=== PATIENT | female | born 1950 | race Caucasian/White ===

== ENCOUNTER 2018-04-18 06:40 | Day surgery (SDC) | payer BC ==
[~2018-04-18] VITALS: Ht 157.5 cm; Wt 77.1 kg
[~2018-04-18 06:40] MED LIST: COLACE100 MG PO; FENOFIBRATE160 MG PO; FISH OIL 1,0001 EAC3 PO; GLUCOSAMINE &1 EAC1 PO; METFORMIN HCL500 MG PO; NORCO 5-325 TA1 EACH PO; NORCO 7.5-3251 EACH PO; SIMVASTATIN40 MG PO; VITAMIN D5000 UNI1 PO
--- NOTE | 2018-04-18 09:53 | NUR ---
04/18/18 0953 Yudy Quigley 6709-PATIENT ARRIVED TO PACU ON 10L MASK WEANED TO 6L O2 SAT 100% RR EVEN. PATIENT REACTIVE TO VOICE EYES CLOSED. SR. RIGHT ARM ELEVATED ON PILLOW GOOD CAP REFILL AND WARMTH JUAN RADIAL PULSE. ICE APPLIED.
--- NOTE | 2018-04-18 10:59 | NUR ---
PATIENT RETURNED TO ROOM 11 AT 1045. PATIENT RETURNED WITH 2L VIA NC TO MAINTAIN SATS 97%. PATIENT IMMEDIATELY UP TO VOID AT COMMODE WITH 2 ASSIST. PATIENT IS DIZZY. 1100 PATIENT TITRATED TO ROOM AIR AND IS 94 TO 95%. RIGHT WRIST HAS ABEBE WRAP INTACT, CMS INTACT, ELEVATED ON ONE PILLOW WITH ICE. IV IS SALINE LOCKED. PATIENT GIVEN ICE WATER FOR SIPS.
--- NOTE | 2018-04-18 12:08 | NUR ---
PATIENT RESTING IN BED HAVING PUDDING, CRACKERS AND WATER. RIGHT ARM ELEVATED ON PILLOW WITH ICE. PATIENT RATES RIGHT WRIST PAIN 7/10 AND IS WILLING TO HAVE ULTRAM FOR PAIN.
[2018-04-18] MEDS ORDERED: ULTRAM50 MG PO (12:34)
--- NOTE | 2018-04-20 07:20 | OR ---
[facility] [place] [facility] [address] [place] [place], [place] [address] Signed DATE OF OPERATION: 04/18/2018 SURGEON: Girma Santillan MD PREOPERATIVE DIAGNOSIS: Symptomatic retained orthopedic hardware, right wrist. POSTOPERATIVE DIAGNOSIS: Symptomatic retained orthopedic hardware, right wrist. PROCEDURE: Removal of plate and screws (seven screws). ANESTHESIA: General. SPECIMENS AND COMPLICATIONS: There were no specimens or complications. TOURNIQUET TIME: Was about half an hour. WHAT WAS DONE: The patient was taken to the operating room. After anesthesia was induced and airway secured, the patient was positioned, prepped and draped in a routine sterile fashion. The arm was exsanguinated with Esmarch bandage. Pneumatic tourniquet was inflated to 250 mmHg pressure. We then made a volar incision using her old scar as a guide. Skin was divided sharply. Subcutaneous tissue was bluntly spread. The FCR tendon sheath was identified, opened and the contents were swept in an ulnar direction. The plate was then identified underneath that surrounded by a moderate amount of scar tissue. This was gently dissected of the plate and screws using a 15 blade and a dental pick tool. We then backed out all the screws, removed all of the pins and were able to elevate the plate and removed it without difficulty. The wound was gently irrigated. The screw holes were gently curetted. The wounds were then irrigated one more time, closed in standard fashion and sterile dressing applied. The patient was awakened and taken to the recovery room where she arrived in stable condition. Counts were correct and antibiotic protocols were followed. Electronically Signed By: GIRMA SANTILLAN MD 04/20/18 0720 PATIENT NAME: BRIGITTE MOORE OPERATIVE REPORT DATE OF : 52 REPORT #: [id number] PHYSICIAN: GIRMA SANTILLAN MD PCP: TIFFANIE TABOR MD REPORT IS CONFIDENTIAL AND NOT TO BE RELEASED WITHOUT AUTHORIZATION [address] [address] Signed Girma Santillan MD WFB/MODL /[id number] Copies: ~ Electronically Signed By: GIRMA SANTILLAN MD 04/20/18 0720 PATIENT NAME: BRIGITTE MOORE OPERATIVE REPORT DATE OF : 52 REPORT #: [id number] PHYSICIAN: GIRMA SANTILLAN MD PCP: TIFFANIE TABOR MD REPORT IS CONFIDENTIAL AND NOT TO BE RELEASED WITHOUT AUTHORIZATION
== END 2018-04-18 13:08 | disposition home or self-care (01) ==
LOC: DS 06:40
PROVIDERS: Orthopaedic Surgery
PROC: 0RPN04Z Removal of Internal Fixation Device from Right Wrist Joint, Open Approach (ICD-10-PCS; principal; 2018-04-18 08:15)
DX: T84.84XA Pain due to internal orthopedic prosthetic devices, implants and grafts, initial encounter (principal); E11.9 Type 2 diabetes mellitus without complications; E78.00 Pure hypercholesterolemia, unspecified; Z88.1 Allergy status to other antibiotic agents; Z79.899 Other long term (current) drug therapy; Z79.84 Long term (current) use of oral hypoglycemic drugs; Z87.891 Personal history of nicotine dependence
CPT/HCPCS: J1100; J1885; J2250; J2405; J2704; J3010; J3490; J7120

== ENCOUNTER 2020-04-01 06:55 | Day surgery (SDC) | payer BC, MEDICARE ==
[~2020-04-01] VITALS: Ht 157.5 cm; Wt 77.1 kg
[~2020-04-01 06:55] MED LIST changes: +LIPITOR80 MG PO; +MACULAR VITAMI1 EACH PO; +ULTRAM50 MG PO
[2020-04-01] MEDS ORDERED: OXYCODON-ACETA1 EAC2 PO (12:39)
[2020-04-01] MEDS ORDERED: IBUPROFEN600 MG PO (12:39)
[2020-04-01] MEDS ORDERED: TYLENOL EXTRA500 MG PO ×2 (12:45→12:56)
--- NOTE | 2020-04-03 08:21 | OR ---
[facility] [address] [place], [place] [address] Signed DATE OF OPERATION: 04/01/2020 SURGEON: Misha Almanza MD PREOPERATIVE DIAGNOSIS: Left upper inner infiltrating ductal breast carcinoma. POSTOPERATIVE DIAGNOSES: 1. Left upper inner infiltrating ductal breast carcinoma. 2. Negative sentinel lymph nodes by initial frozen pathology examination. PROCEDURES: 1. Left breast sentinel lymph node injection of methylene blue dye. 2. Left deep axillary sentinel lymph node biopsies (5 total). 3. Left needle localized partial mastectomy upper inner aspect of breast with oncoplastic closure including breast pedicle mobilization and approximation. ANESTHESIA: General endotracheal; Ori Holloway CRNA. INDICATION: This 69-year-old white woman is a patient of Dr. Tiffanie Talley. She was found on a screening mammogram to have an abnormality in the upper aspect of the left breast. Evaluation by Dr. Alarcon included biopsy, confirming infiltrating ductal breast carcinoma. She has had no prior breast intervention of any sort and has no family history of breast cancer, though a cousin on her maternal sign may have had breast cancer she thinks. She is postmenopausal. She had bruising and so forth related to her biopsy and therefore, it is unclear if there was a palpable mass at the time I evaluated her. She has no clinical evidence of metastatic disease. She is COVID negative. She is admitted at this time to undergo a needle localized excision of the tumor with partial mastectomy as well as sentinel lymph node biopsy on the left side, possible axillary dissection. The risks of bleeding, infection, cosmetic deformity, and a plan for radiation therapy postoperatively, has all been reviewed with her in detail. She understands and wished to proceed. FINDINGS: Good uptake of methylene blue dye and radionuclide to the left axillary sentinel lymph nodes was noted. Frozen pathology on at least 4 of the 5 lymph nodes excised, showed no evidence of metastatic disease. Several of the lymph nodes were fatty replaced, but were "hot" on radionuclide uptake. They were additionally hot on the "Spywear" Electronically Signed By: MISHA ALMANZA MD 04/03/20 0821 PATIENT NAME: BRIGITTE MOORE OPERATIVE REPORT DATE OF : 52 REPORT #: [id number] PHYSICIAN: MISHA ALMANZA MD PCP: TIFFANIE TALLEY MD REPORT IS CONFIDENTIAL AND NOT TO BE RELEASED WITHOUT AUTHORIZATION [facility] [address], [place] [address] Signed technology. As regard to the excised neoplasm, it was very firm and well-defined, but larger than I had anticipated. There was no sign of residual hematoma. Wide excision was undertaken with a clinically negative margin and additional margin taken inferiorly. The sizable defect remaining in the superior inner aspect of the breast was more optimally closed from a cosmetic standpoint by mobilizing the superior and inferior breast pedicle advancing and reapproximating in an oncoplastic closure technique. At conclusion, the cosmesis was good. DESCRIPTION OF PROCEDURE: The patient was brought to the operating room, given a general LMA type anesthetic. She had been received from Radiology suite. A wire was emanating from the medial aspect in the superior portion of the left breast. Interrogation of the left axilla with the C-Trak probe device showed intense uptake in the mid left axilla. A 1.5 mL of methylene blue dye was injected in the subepidermal space at the 10 o'clock position of the left areola. In addition, 0.1 mL of contrast was injected at 12 o'clock and another in the 3 o'clock position. The breast was prepared with a spray Betadine solution and draped sterilely. A sterile C-Trak probe was applied to the left axilla, identifying the area of maximal uptake. The SpyGlass hand probe was used, which identified well the injection sites and lymphatic streak to the left axilla as well. It did not otherwise, localize the abnormality. The transversus abdominis made, however, the area of maximal uptake corresponding to the radionuclide dissection, carried through the dermis sharply using blunt electrocautery dissection. The mid to upper axillary contents were interrogated. With various manipulations and with use of the C-Trak probe and episodic use of the SpyGlass technology, the intense blue node was identified. This was dissected free from surrounding soft tissue, excised, measured about 1.5 cm in size. It was not hard, but was firm. It is confirmed to have high uptake with radionuclide as well as the SpyGlass device. It was sent as sentinel lymph node #1. Additional dissection of the axilla was undertaken, ultimately retrieving 5 nodes, 2 of them quite small, none of them suspicious. It was subsequently noted by Dr. Nesbitt to be negative on frozen pathology, though one of the smallest nodes has not yet been examined microscopically. The axillary wound was packed with gauze after application of several clips to those areas as small amount of bleeding. Attention was turned towards the left breast excision. Wire emanated from the medial superior aspect on the left side. Using the natural skin tension as a guide, an incision was made directly over where the lesion was likely to be located. Dissection was carried through the dermis with electrocautery. With some electrocautery dissection, the wire was encountered and relocated into the incision and the parenchyma associated with a grasped with an Allis clamp. Electrocautery was used to dissect circumferentially as the wire as a guideline. Firmness of the lesion could be palpated and a wide margin was maintained. It appeared to be in the upper inner aspect of the left breast. Dissection was carried down essentially the pectoralis fascia to provide and clinically negative margin. Once Electronically Signed By: MISHA ALMANZA MD 04/03/20 0821 PATIENT NAME: BRIGITTE MOORE OPERATIVE REPORT DATE OF : 52 REPORT #: [id number] PHYSICIAN: MISHA ALMANZA MD PCP: TIFFANIE TALLEY MD REPORT IS CONFIDENTIAL AND NOT TO BE RELEASED WITHOUT AUTHORIZATION [facility] [address], [place] [address] Signed excised, the specimen was marked with a short stitch superior and long stitch lateral, and a double stitch in the deep margin. Palpation within the biopsy cavity did not reveal any strong suspicion of residual tissue. However, the inferior margin was excised fully and widely as it was the most dense of the remaining breast parenchyma. The specimen was sent for permanent pathology as well. This defect was relatively sizable and primary reapproximation of the skin easily possible, but parenchyma leaving a defect. On this basis, an oncoplastic closure was deemed advisable. The fascia of the breast superiorly was grasped with two Allis clamps and the breast elevated from the underlying pectoralis muscle, mobilizing it inferiorly. Similar technique was used for the inferior breast pedicle. This allowed reapproximation of the fascial rather the deep fascial margin and breast parenchyma with interrupted 2-0 Vicryl. The parenchyma itself was reapproximated with less tension due to mobilization, also with 2-0 Vicryl and deep dermal tissue similarly reapproximated. Release of tension on the skin inferiorly was undertaken with electrocautery and the skin more mobilized for beneficial cosmetic affect. The skin was then closed in a running subcuticular 3-0 Vicryl. Steri-Strips were applied. By this point, the frozen pathology had returned confirming no sign of metastatic disease to the axilla. The left axillary wound was inspected showing no sign of ongoing bleeding or other problems. It was closed with interrupted 2-0 Vicryl and a running subcuticular 3-0 Vicryl for the skin. Steri-Strips were applied as were silver sponge dressings. The patient was ultimately extubated and transferred to recovery room in good condition, having suffered no complications. Sponge, needle, and instruments counts were reported as correct x3. Blood loss was less than 25 mL. Misha Almanza MD /MODL /[id number] cc: Tiffanie Talley MD Copies: TIFFANIE TALLEY MD Electronically Signed By: MISHA ALMANZA MD 04/03/20 0821 PATIENT NAME: BRIGITTE MOORE OPERATIVE REPORT DATE OF : 52 REPORT #: [id number] PHYSICIAN: MISHA ALMANZA MD PCP: TIFFANIE TALLEY MD REPORT IS CONFIDENTIAL AND NOT TO BE RELEASED WITHOUT AUTHORIZATION [address] [address] Signed ~ Electronically Signed By: MISHA ALMANZA MD 04/03/20 0821 PATIENT NAME: MOOREBRIGITTE OPERATIVE REPORT DATE OF : 52 REPORT #: [id number] PHYSICIAN: MISHA ALMANZA MD PCP: TIFFANIE TALLEY MD REPORT IS CONFIDENTIAL AND NOT TO BE RELEASED WITHOUT AUTHORIZATION
--- NOTE | 2020-04-04 18:24 | PATH ---
[facility] [address] [facility] [place], [place] [address] Signed SPECIMEN(S): A SENTINEL LYMPH NODE #1 SPECIMEN(S): B SENTINEL LYMPH NODE #2 SPECIMEN(S): C SENTINEL LYMPH NODE #3 SPECIMEN(S): D SENTINEL LYMPH NODE #4 SPECIMEN(S): E SENTINEL LYMPH NODE #5 SPECIMEN(S): F LEFT BREAST SPECIMEN(S): G ADDITIONAL INFERIOR MARGIN SPECIMEN SOURCE: A. SENTINEL LYMPH NODE #1 B. SENTINEL LYMPH NODE #2 C. SENTINEL LYMPH NODE #3 D. SENTINEL LYMPH NODE #4 E. SENTINEL LYMPH NODE #5 F. LEFT BREAST G. ADDITIONAL INFERIOR MARGIN CLINICAL HISTORY: Left breast biopsy with US. Lumpectomy (short stitch superior, long stitch lateral, double stitch deep). Infiltrating ductal cancer, left breast. FROZEN SECTION DIAGNOSIS: A. [place] lymph node #1: No evidence of malignancy in group sales representative section frozen. (Dr. Awan, 04/01/20, 11:32 AM) B. [place] lymph node #2:No evidence of malignancy and group sales representative section frozen. (Dr. Awan, 04/01/20, 11:32 AM) C. [place] lymph node #3:No evidence of malignancy and group sales representative section frozen. (Dr. Awan, 04/01/20, 11:50 AM) INTRAOPERATIVE CONSULTATION DIAGNOSIS: D. [place] lymph node #4: No gross evidence of metastasis (gross exam only). (Dr. Awan, 04/01/20, 11:50 AM) E. [place] lymph node #5: No gross evidence of metastasis (gross exam only). (Dr. Awan, 04/01/20, 11:50 AM) AC (under the direct supervision of a pathologist) The Gross Description was prepared using a voice recognition system. The report was reviewed for accuracy; however, sound-alike word errors, addition and/or deletions may occur. If there is any question about this report, please contact Client Services. FINAL PATHOLOGIC DIAGNOSIS: A. [place] lymph node #1, left axilla, excisional biopsy: PATIENT NAME: BRIGITTE MOORE PATHOLOGY DATE OF : 52 REPORT #: [id number] PHYSICIAN: FIDEL HALL PCP: TIFFANIE TABOR MD REPORT IS CONFIDENTIAL AND NOT TO BE RELEASED WITHOUT AUTHORIZATION [facility] [address] [place], [place] [address] Signed - One lymph node with no evidence of malignancy (0/1). B. [place] lymph node #2, left axilla, excisional biopsy: - One lymph node with no evidence of malignancy (0/1). C. [place] lymph node #3, left axilla, excisional biopsy: - One lymph node with no evidence of malignancy (0/1). D. [place] lymph node #4, left axilla, excisional biopsy: - One lymph node with no evidence of malignancy (0/1). E. [place] lymph node #5, left axilla, excisional biopsy: - One lymph node with no evidence of malignancy (0/1). F. Breast, left, lumpectomy: - Invasive ductal carcinoma with the following features: - Tumor size: 2.3 x 1.9 x 1.6 cm. - Histologic type: Invasive ductal carcinoma. - Histologic grade ([place] Histologic Score): - Glandular (acinar)/tubular differentiation: Score 3. - Nuclear pleomorphism: Score 2. - Mitotic rate: Score 1. - Overall grade: II/III, intermediate grade (total score 6 of 9). - Ductal carcinoma in situ: Present, intermediate grade, cribriform and comedo types with necrosis. - Margins: - Invasive carcinoma margins: Uninvolved by invasive carcinoma. - Distance from closest margins: 0.5 mm from superior-medial margin, 3 mm from superior margin, 8 mm from lateral margin. - DCIS margins: Uninvolved by DCIS. - Distance from closest margin: 6 mm from medial margin. - Regional lymph nodes: Uninvolved by tumor cells. - Total number of lymph nodes examined: 5 - [place] lymph nodes examined: 5 - Treatment effect in the breast: No known pre-surgical therapy. - Lymphovascular invasion: Not identified. - Pathologic stage classification (PTNM, AJCC 8th edition: pT2 (sn)pN0. - Ancillary studies: Please refer to previously performed studies ([id number]) which were reported as ER positive, [place] positive, Ki-67 proliferation index of 17%, and HER2 negative by IHC. - Microcalcifications: Present in invasive carcinoma and in non-neoplastic breast tissue. PATIENT NAME: BRIGITTE MOORE PATHOLOGY DATE OF : 52 REPORT #: [id number] PHYSICIAN: FIDEL HALL PCP: TIFFANIE TABOR MD REPORT IS CONFIDENTIAL AND NOT TO BE RELEASED WITHOUT AUTHORIZATION [address] [address] Signed - Background breast tissue with fibrocystic changes including usual ductal hyperplasia, apocrine metaplasia, cyst formation, and dense stromal fibrosis. - Focal changes consistent with biopsy site. G. Breast, left, additional inferior margin, excision: - Fibrocystic change including stromal fibrosis, cyst formation, usual ductal hyperplasia, apocrine metaplasia, and adenosis. - Duct ectasia. - Incidental intraductal papillomas (2 mm in greatest dimension). - Microcalcifications associated with non-neoplastic breast tissue. - Negative for malignancy. COMMENT: As part of [facility]' Quality Improvement Program, selected slides from part F of this case were reviewed by another member of our pathology staff. The sentinel lymph nodes were examined with multiple levels and with pancytokeratin (AE1/AE3) immunohistochemical stains on group sales representative sections. NAL:NRT:cml:C1NR MICROSCOPIC EXAMINATION: Histologic sections of all submitted blocks are examined by light microscopy. Immunohistochemical stains (with appropriately staining controls) were performed. Kern cytokeratin (AE1/AE3) stains were performed on group sales representative sections of the sentinel lymph nodes, blocks A1, B1, C2, C4, D1, and E1 and confirm the absence of metastasis. Smooth muscle myosin heavy chain performed on block F5 confirms the presence of DCIS. E-cadherin demonstrates strong membranous reactivity of the tumor cells, compatible with ductal origin. These findings, together with the gross examination, support the pathologic diagnosis. GROSS DESCRIPTION: Seven specimens are received in seven containers, labeled "JG." A. The specimen, labeled "JG," and designated on the requisition "sentinel lymph node #1," is received in formalin and consists of multiple previous ink at pieces of white-jennings possible lymph node with attached adipose (2.4 x 2.1 x 1.5 cm in aggregate) and a cassette labeled "AFS" containing a section of possible lymph node that is resubmitted in cassette (A1). The remainder of the specimen is submitted entirely in cassettes (A2-A3). Per the requisition, "received fresh is a 2.4 x 2.1 x 1.5 cm lymph node. Lymph node is serially sectioned and group sales representative section frozen as AFR1." PATIENT NAME: BRIGITTE MOORE PATHOLOGY DATE OF : 52 REPORT #: [id number] PHYSICIAN: FIDEL HALL PCP: TIFFANIE TABOR MD REPORT IS CONFIDENTIAL AND NOT TO BE RELEASED WITHOUT AUTHORIZATION [facility] [address] [place], [place] [address] Signed Cold ischemic time cannot be calculated due to insufficient information. The tissue was fixed in formalin for at least 24 hours. B. The specimen, labeled "JG," and designated on the requisition "sentinel lymph node #2," is received in formalin and consists of two pieces of white-jennings possible lymph node with scant attached soft tissue (1.4 x 0.6 x 0.3 cm and 1.0 x 0.7 x 0.3 cm), and a cassette labeled "FSB" containing a section of white-jennings to yellow-jennings tissue/possible lymph node that is resubmitted in cassette (B1). The remaining tissue is submitted entirely in cassette (B2). Per requisition, "received fresh is a 1.0 x 0.8 x 0.5 cm lymph node. Lymph node is trisected and group sales representative section frozen as BFR1." Cold ischemic time cannot be calculated due to insufficient information. The tissue was fixed in formalin for at least 24 hours. C. The specimen, labeled "JG," and designated on the requisition "sentinel lymph node #3," is received in formalin and consists of a previously sectioned pink-jennings to yellow-jennings possible lymph node and adipose (3.5 x 2.3 x 1.4 cm), two pieces of pink-jennings to yellow-jennings possible lymph node and soft tissue wrapped in gauze (1.4 x 1.2 x 0.9 cm in aggregate), and a cassette labeled "FSC" containing a section of possible lymph node that is resubmitted in cassette (C1). Per the requisition, "received fresh is a 4.5 x 2.2 x 1.1 cm fat. Two lymph nodes identified, 2.5 x 2.1 x 1.2 cm and 1.9 x 1.4 x 0.6 cm. Lymph nodes are serially sectioned and group sales representative section of larger frozen as CFR1" and "specimen C contained two lymph nodes, the smaller wrapped in gauze, the larger (frozen) is free-floating in container". The remaining tissue is submitted entirely as follows: (C2-C3) Free-floating possible lymph node (C4) Possible lymph node pieces wrapped in gauze Cold ischemic time cannot be calculated due to insufficient information. The tissue was fixed in formalin for at least 24 hours. D. The specimen, labeled "JG," and designated on the requisition "sentinel lymph node #4," is received in formalin and consists of a previously bisected, brown-jennings possible lymph node with surrounding soft tissue/adipose (0.7 x 0.5 x 0.4 cm). Per the requisition, "received fresh is a 0.6 x 0.5 x 0.2 cm lymph node. Lymph and is bisected to reveal red soft tissue. No gross evidence of metastasis." The specimen is submitted entirely in cassette (D1). Cold ischemic time cannot be calculated due to insufficient information. The tissue was fixed in formalin for at least 24 hours. PATIENT NAME: BRIGITTE MOORE PATHOLOGY DATE OF : 52 REPORT #: [id number] PHYSICIAN: FIDEL PATHOLOGY PCP: TIFFANIE TABOR MD REPORT IS CONFIDENTIAL AND NOT TO BE RELEASED WITHOUT AUTHORIZATION [facility] [address] [place], [place] [address] Signed E. The specimen, labeled "JG," and designated on the requisition "sentinel lymph node #5," is received in formalin and consists of one previously bisected piece of yellow-jennings to brown-jennings soft tissue and adipose (2.2 x 1.0 x 0.7 cm). The specimen is submitted entirely in cassette (E1). Per the requisition, "received fresh is a 1.7 x 1.0 x 0.5 cm lymph node. Lymph node is bisected to reveal fatty tissue. No gross evidence of metastasis." The specimen is submitted entirely in cassette (E1). Cold ischemic time cannot be calculated due to insufficient information. The tissue was fixed in formalin for at least 24 hours. F. The specimen, labeled "JG," and designated on the requisition "left breast cancer," is received in formalin and consists of an oriented lumpectomy (56 grams, 6.2 cm superficial to deep, 4.3 cm superior to inferior, and 3.1 cm medial to lateral) with a wire localization, and a short stitch marking the superior aspect, a long stitch marking the lateral aspect, and a double stitch marking the deep aspect per the requisition. The specimen is inked as follows: Blue = superior Black = deep Yellow = superficial Dawes = lateral Red = medial Green = inferior The specimen is serially sectioned from deep to superficial into 11 slices to reveal a firm, white-jennings, ill-defined mass (2.3 x 1.9 x 1.6 cm) in slices 4-7 abutting the medial margin, and located 0.1 cm from the superior margin, 0.4 cm from the deep margin, 0.7 cm from the lateral margin, 2.1 cm from the superficial margin, and 2.5 cm from the inferior margin. The surface shows white-jennings to yellow-jennings and hemorrhagic fibroadipose tissue (75% fibrous). [employer]ent [employer] sections are submitted as follows: Cassette Summary: (F1) Slice one, deep margin, perpendicular sections (F2) Slice two (F3) Slice four, mass to close deep margin (F4) Slice five, mass to closest medial and superior margins (F5) Slice six, mass to medial margin (F6) Slice seven, mass to closest lateral margin (F7) Slice eight, hemorrhagic/fibrous area (F8) Slice nine, hemorrhagic/fibrous area PATIENT NAME: BRIGITTE MOORE PATHOLOGY DATE OF : 52 REPORT #: [id number] PHYSICIAN: FIDEL HALL PCP: TIFFANIE TABOR MD REPORT IS CONFIDENTIAL AND NOT TO BE RELEASED WITHOUT AUTHORIZATION [facility] [address] [place], [place] [address] Signed (F9) Slice 11, superficial margin, perpendicular sections Cold ischemic time cannot be calculated due to insufficient information. The tissue was fixed in formalin for at least 24 hours. G. The specimen, labeled "JG," and designated on the requisition "additional inferior margin," is received in formalin and consists of a portion of unoriented white-jennings to yellow-jennings and hemorrhagic fibroadipose tissue (0.9 grams, 7.6 x 5.2 x 1.1 cm). One aspect is inked blue and the opposite aspect is inked black. The specimen is serially sectioned to reveal a white-jennings, fibrous to yellow-jennings soft cut surface (80% fibrous). The specimen is submitted entirely in cassettes (G1-G17). Cold ischemic time cannot be calculated due to insufficient information. The tissue was fixed in formalin for at least 24 hours. ADDITIONAL NOTES: Immunohistochemical and/or in situ hybridization studies were performed on this case with the appropriate positive controls that react as expected. This test was developed and its performance characteristics determined by [facility]. It has not been cleared or approved by the U.S. Food and Drug Administration. The FDA has determined that such clearance or approval is not necessary. This test is used for clinical purposes. It should not be regarded as investigational or for research. [facility] is certified under the Clinical Laboratory Improvement Amendments of 1988 (CLIA) as qualified to perform high complexity clinical laboratory testing. PERFORMING LABORATORY: [facility] [address] [place] [address] (CLIA# [id number]). The technical component was performed by [facility] [address] ([employer]: Edwina Piper MD; CLIA# [id number]). Professional interpretation [facility] [address] [place] [address] (CLIA# [id number]). Diagnostician: Meme Awan MD Pathologist Electronically Signed 04/04/2020 PATIENT NAME: BRIGITTE MOORE PATHOLOGY DATE OF : 52 REPORT #: [id number] PHYSICIAN: FIDEL PATHOLOGY PCP: TIFFANIE TABOR MD REPORT IS CONFIDENTIAL AND NOT TO BE RELEASED WITHOUT AUTHORIZATION [address] [place], [place] [address] Signed Copies: ~ PATIENT NAME: BRIGITTE MOORE PATHOLOGY DATE OF : 52 REPORT #: [id number] PHYSICIAN: FIDEL PATHOLOGY PCP: TIFFANIE TABOR MD REPORT IS CONFIDENTIAL AND NOT TO BE RELEASED WITHOUT AUTHORIZATION
== END 2020-04-01 15:55 | disposition home or self-care (01) ==
LOC: OPS 06:55 → DS 06:55 → US 08:00 → EDSTATUS 08:00 → OPS 08:00
PROVIDERS: Surgery
PROC: 07B60ZX Excision of Left Axillary Lymphatic, Open Approach, Diagnostic (ICD-10-PCS; principal; 2020-04-01 10:45)
PROC: 0HBU0ZZ Excision of Left Breast, Open Approach (ICD-10-PCS; 2020-04-01 10:45)
DX: C50.212 Malignant neoplasm of upper-inner quadrant of left female breast (principal); E11.9 Type 2 diabetes mellitus without complications; E78.5 Hyperlipidemia, unspecified; Z88.8 Allergy status to other drugs, medicaments and biological substances; Z88.0 Allergy status to penicillin; Z79.899 Other long term (current) drug therapy; Z79.84 Long term (current) use of oral hypoglycemic drugs; Z87.891 Personal history of nicotine dependence
CPT/HCPCS: 00406; 19285; 77065; 78195; 88305; 88307; 88341; 88342; A9541; J0690; J1644; J1885; J2001; J2405; J2704; J3010; J7121; Q9968